=== PATIENT | male | born 1975 | race Caucasian/White ===

== ENCOUNTER 2022-09-10 09:56 | Emergency (ER) | payer OTHER ==
[~2022-09-10] VITALS: Ht 182.9 cm; Wt 157.4 kg
[~2022-09-10 09:56] MED LIST: KETO10TA2 PO; ORPH100T PO
[2022-09-10] MEDS ORDERED: METFORMIN HCL500 M3 (10:36)
[2022-09-10] MEDS ORDERED: LISINOPRIL10 MG (10:36)
[2022-09-10] MEDS ORDERED: LIPITOR20 MG (10:37)
[2022-09-10] MEDS ORDERED: CYCLOBENZAPRINE10 MG PO (14:51)
[2022-09-10] MEDS ORDERED: CIPRO500 MG PO (14:51)
== END 2022-09-10 15:17 | disposition home or self-care (01) ==
LOC: ER 09:56
DX: N30.80 Other cystitis without hematuria (principal); M54.89 Other dorsalgia; I10 Essential (primary) hypertension; E11.9 Type 2 diabetes mellitus without complications; Z79.84 Long term (current) use of oral hypoglycemic drugs

== ENCOUNTER 2024-02-01 14:46 | Emergency (ER) | payer OTHER ==
[~2024-02-01] VITALS: Ht 182.9 cm; Wt 157.4 kg
[~2024-02-01 14:46] MED LIST changes: +CIPRO500 MG PO; +CYCLOBENZAPRINE10 MG PO; +LIPITOR20 MG; +LISINOPRIL10 MG; +METFORMIN HCL500 M3
[2024-02-01] MEDS ORDERED: ORPHENADRINE CITRATE 30 MG/ML AMPUL ONE (15:39)
[2024-02-01] MEDS ORDERED: KETOROLAC TROMETHAMINE 30 MG VIAL ONE (15:40)
[2024-02-01] MEDS ORDERED: ORPHENADRINE CITRATE 30 MG/ML AMPUL IM ONE (15:45)
[2024-02-01] MEDS ORDERED: KETOROLAC TROMETHAMINE 30 MG VIAL IM ONE (15:45)
== END 2024-02-01 16:35 | disposition home or self-care (01) ==
LOC: ER 14:47
DX: S39.012A Strain of muscle, fascia and tendon of lower back, initial encounter (principal); E11.9 Type 2 diabetes mellitus without complications; Z79.84 Long term (current) use of oral hypoglycemic drugs; I10 Essential (primary) hypertension